=== PATIENT | female | born 1985 | race Caucasian/White ===

== ENCOUNTER 2017-03-13 02:57 | Emergency (ER) | payer MEDICAID ==
[~2017-03-13] VITALS: Ht 157.5 cm; Wt 66.0 kg
[~2017-03-13 02:57] MED LIST: BACTDS PO; HYDR-3498 PO; IBUP-1542 PO
[2017-03-13 03:00] VITALS: Ht 157.5 cm; Wt 66.0 kg
[2017-03-13] MEDS ORDERED: morphine 4 MG/ML VIAL IV STA (03:04)
[2017-03-13] MEDS ORDERED: ONDANSETRON 4 MG INJ IV STA (03:04)
[2017-03-13] MEDS ORDERED: SOD CHLORIDE 0.9% 1,000 ML IV STA (03:04)
[2017-03-13 03:24] LABS: URINE BLOOD (Dip) POC Negative (NEGATIVE)
[2017-03-13 03:37] LABS: ADD SCAN DIFF NO
[2017-03-13 03:47] LABS: ADD UMIC YES; URINE BILIRUBIN (Dip) NEGATIVE (NEGATIVE); URINE BLOOD (Dip) NEGATIVE (NEGATIVE); URINE COLOR LT. YELLOW (YELLOW); URINE GLUCOSE (Dip) NEGATIVE (NEGATIVE); URINE KETONES (Dip) NEGATIVE (NEGATIVE); URINE LEUKOCYTE ESTERASE (Dip) TRACE (NEGATIVE); URINE NITRITE (Dip) NEGATIVE (NEGATIVE); URINE TOTAL PROTEIN (Dip) NEGATIVE (NEGATIVE); URINE UROBILINOGEN (Dip) 0.2 E.U./dL (0.1-1.0)
[2017-03-13 03:50] LABS: INR 0.88; PARTIAL THROMBOPLASTIN TIME 29.6 Sec (25.0-35.0); PROTIME 11.9 Sec (12.2-14.2); PT RATIO 0.9
--- NOTE | 2017-03-13 03:50 | RADRPT ---
PROCEDURE: Ultrasound of the abdomen. CLINICAL INDICATION: Right upper quadrant pain. TECHNIQUE: Sonographic images of the abdomen were performed. COMPARISON: No pertinent prior examinations were submitted for comparison. FINDINGS: Liver: The liver is normal in echogencity and size measuring approximately 14.1 cm. The hepatic vei ns and portal veins are patent with appropriate directional flow. No intrahepatic ductal dilatation is seen. Gallbladder: The gallbladder is not distended and has normal wall thickness. No pericholecystic flu id or gallstones are visualized. The common duct measures 4.5 mm. Pancreas: Obscured by bowel gas. Kidneys: The right kidney measures 11.1 cm. There is normal corticomedullary differentiation. Ther e is no evidence of renal calculus or hydronephrosis. IVC: The visualized portion of the inferior vena cava is unremarkable. Aorta: Normal in size. Free fluid: None. IMPRESSION: Unremarkable right upper quadrant ultrasound. RPTAT: HIKT .Jaylen Ruiz MD, MD Date Time Electronically viewed and signed by .Jaylen Ruiz MD, on 03/13/2017 03:49 .T/
[2017-03-13 03:55] LABS: ALBUMIN 4.1 g/dl (3.3-4.9); ALBUMIN/GLOBULIN RATIO 1.13; BASOPHIL # 0.1 10^3/ul (0.0-0.1); BASOPHILS % 1.3 % (0.0-2.0); CALCIUM 8.9 mg/dl (8.4-10.2); CREATININE 0.65 mg/dl (0.44-1.00); EOSINOPHILS # 0.5 10^3/ul (0.0-0.5); HEMATOCRIT 42.1 % (37.0-47.0); HEMOGLOBIN 13.3 g/dl (12.0-16.0); LYMPHOCYTES # 3.8 10^3/ul (0.8-2.9); LYMPHOCYTES % 50.3 % (15.0-51.0); MEAN CORPUSCULAR HEMOGLOBIN 28.8 pg (29.0-33.0); MEAN CORPUSCULAR HGB CONC 31.6 g/dl (32.0-37.0); MEAN CORPUSCULAR VOLUME 91.1 fl (82.0-101.0); MEAN PLATELET VOLUME 9.3 fl (7.4-10.4); MONOCYTE # 0.6 10^3/ul (0.3-0.9); MONOCYTES % 7.3 % (0.0-11.0); NEUTROPHIL # 2.6 10^3/ul (1.6-7.5); PLATELET COUNT 292 10^3/UL (140-415); POTASSIUM 3.4 mmol/L (3.5-5.1); RED BLOOD COUNT 4.62 10^6/ul (4.20-5.40); RED CELL DISTRIBUTION WIDTH 13.3 % (11.5-14.5); TOTAL PROTEIN 7.7 g/dl (6.1-8.1); WHITE BLOOD COUNT 7.5 10^3/ul (4.8-10.8)
[2017-03-13 03:58] LABS: BACTERIA,URINE MANY; SQUAMOUS EPITHELIAL CELL,UR MODERATE; URINE RBCS 0-2 /HPF (0)
--- NOTE | 2017-03-13 04:10 | ERD ---
ER Documentation Chief Complaint Date/Time DATE: 03/13/17 TIME: 04:09 Chief Complaint upper abd pain radaiting to back since 3 hours ago HPI This is a 31-year-old female comes in with upper abdominal pain rating to back since 3 years ago. Patient has history of gastritis. Pain is mild to moderate intensity, burning in sensation. No fevers no chills. Mild nausea. No vomiting. No other current complaints. ROS All systems reviewed and are negative except as per history of present illness. Medications Home Meds Active Scripts Hydrocodone Bit-Acetaminophen* ([place]*) 5-325 Mg Tab, 1 TAB PO Q6 Y for PAIN, # 7 TAB Prov:HEIDY SINCLAIR MD 05/19/16 Ibuprofen* (Motrin*) 600 Mg Tab, 600 MG PO Q6H Y for PAIN AND OR ELEVATED TEMP, #30 TAB Prov:HEIDY SINCLAIR MD 05/19/16 Sulfamethoxazole-Trimethoprim* (Bactrim* DS) 800-160 Mg Tab, 1 TAB PO BID, #20 TAB Prov:HEIDY SINCLAIR MD 05/19/16 Allergies Allergies: Coded Allergies: No Known Drug Allergies (Verified Allergy, Mild, 05/19/16) PMhx/Soc History of Surgery: No Anesthesia Reaction: No Hx Neurological Disorder: No Hx Respiratory Disorders: No Hx Cardiac Disorders: No Hx Psychiatric Problems: No Hx Miscellaneous Medical Probl: Yes (gall stones) Hx Alcohol Use: No Hx Substance Use: No Hx Tobacco Use: No Smoking Status: Never smoker Physical Exam Vitals Vital Signs Date Time Temp Pulse Resp B/P Pulse Ox O2 Delivery O2 Flow Rate FiO2 03/13/17 03:00 97.6 89 20 122/70 99 Physical Exam Const: [] Head: Atraumatic Eyes: Normal Conjunctiva ENT: Normal External Ears, Nose and Mouth. Neck: Full range of motion..~ No meningismus. Resp: Clear to auscultation bilaterally Cardio: Regular rate and rhythm, no murmurs Abd: Soft, non tender, non distended. Normal bowel sounds Skin: No petechiae or rashes Back: No midline or flank tenderness Ext: No cyanosis, or edema Neur: Awake and alert Psych: Normal Mood and Affect Result Diagram: 03/13/17 0325 Results 24 hrs Laboratory Tests Test 03/13/17 03:24 03/13/17 03:25 Bedside Urine pH (LAB) 5.5 Bedside Urine Protein (LAB) Negative Bedside Urine Glucose (UA) Negative Bedside Urine Ketones (LAB) Negative Bedside Urine Blood Negative Bedside Urine Nitrite (LAB) Negative Bedside Urine Leukocyte Esterase (L Trace Prothrombin Time 11.9Sec Prothrombin Time Ratio 0.9 INR International Normalized Ratio 0.88 Activated Partial Thromboplast Time 29.6Sec Urine Color LT. YELLOW Urine Clarity CLEAR Urine pH 5.5 Urine Specific [place] >=1.030 Urine Ketones NEGATIVE Urine Nitrite NEGATIVE Urine Bilirubin NEGATIVE Urine Urobilinogen 0.2 E.U./dL Urine Leukocyte Esterase TRACE Urine Microscopic RBC 0-2/HPF Urine Microscopic WBC 5-10/HPF Urine Squamous Epithelial Cells MODERATE Urine Bacteria MANY Urine Hemoglobin NEGATIVE Urine Glucose NEGATIVE% Urine Total Protein NEGATIVE Sodium Level 139mmol/L Potassium Level 3.4mmol/L Chloride Level 105mmol/L Carbon Dioxide Level 24mmol/L Anion Gap 13 Blood Urea Nitrogen 12mg/dl Creatinine 0.65mg/dl Glucose Level 107mg/dl Calcium Level 8.9mg/dl Total Bilirubin 0.0mg/dl Direct Bilirubin 0.00mg/dl Indirect Bilirubin 0.0mg/dl Aspartate Amino Transf (AST/SGOT) 24IU/L Alanine Aminotransferase (ALT/SGPT) 27IU/L Alkaline Phosphatase 89IU/L Total Protein 7.7g/dl Albumin 4.1g/dl Globulin 3.60g/dl Albumin/Globulin Ratio 1.13 Lipase 101U/L Current Medications Medications (Trade) Dose Ordered Sig/Ramirez Route PRN Reason Start Time Stop Time Status Last Admin Dose Admin Sodium Chloride (NS) 1,000 ml @ 1,000 mls/hr Q1H STAT IV 03/13/17 03:04 03/13/17 04:03 DC 03/13/17 03:24 Morphine Sulfate (morphine) 4 mg ONCE STAT IV 03/13/17 03:04 03/13/17 03:07 DC 03/13/17 03:23 Ondansetron HCl (Zofran Inj) 4 mg ONCE STAT IV 03/13/17 03:04 03/13/17 03:07 DC 03/13/17 03:23 Procedures/MDM Medical decision-makin-year-old female with acute epigastric abdominal pain likely secondary gastritis. At this point patient feels much better. Patient will be discharged home with Zantac, Carafate. Follow-up in 8 hours for serial abdominal exams. Departure Diagnosis: Primary Impression: Abdominal pain Abdominal location: epigastric Qualified Code: R10.13 - Epigastric pain Condition: Stable PRESTON LAL Mar 13, 2017 04:10
[2017-03-13] MEDS ORDERED: ONDA4TAB14 PO (04:20)
[2017-03-13] MEDS ORDERED: RANI150T9 PO (04:20)
[2017-03-13] MEDS ORDERED: SUCR1TAB56 PO (04:20)
[2017-03-13 04:29] VITALS: BP 109/70; PULSE 68; RESP 20; TEMP 98
[2017-03-13] MEDS ORDERED: LIDOCAINE/MYLANTA 40 ML BTL PO ONE (04:30)
== END 2017-03-13 04:29 | disposition home or self-care (01) ==
LOC: E/R 02:57
DX: R10.13 Epigastric pain (principal); R11.0 Nausea
CPT/HCPCS: 36415; 76705; 80053; 81001; 83690; 85025; 85610; 85730; 96374; 96375; J2270; J2405; J7030; Z7502; Z7610; 81003

== ENCOUNTER 2017-04-12 00:52 | Emergency (ER) | payer MEDICAID ==
[~2017-04-12] VITALS: Ht 152.4 cm; Wt 66.0 kg
[~2017-04-12 00:52] MED LIST changes: +ONDA4TAB14 PO; +RANI150T9 PO; +SUCR1TAB56 PO
[2017-04-12 00:57] VITALS: Ht 152.4 cm; Wt 66.0 kg
--- NOTE | 2017-04-12 02:27 | ERA ---
ER Documentation Chief Complaint Date/Time DATE: 04/12/17 TIME: 02:24 Chief Complaint Abdominal pain HPI The patient is a 32-year-old female, presenting to the ER because of recurrent abdominal pain that began about 8 PM yesterday.. The abdominal pain is localized at the epigastric area, associated with constipation she was seen in the ER last month for similar symptoms. She complains of constipation. She denies fever, chills, neck pain, chest pain, dysuria. He complains of chronic nasal congestion and sinus problems she does not smoke, drink Past medical history: Gastritis, asthma Past surgical history: None ROS All systems reviewed and are negative except as per history of present illness. Medications Home Meds Active Scripts Omeprazole* (Omeprazole*) 20 Mg Capsule.dr, 20 MG PO BID, #20 Prov:HEIDY SINCLAIR MD 04/12/17 Loratadine/Pseudoephedrine* (Claritin-D* 12 Hr) 5-120 Mg Tab.er.12h, 1 TAB PO Q12, #20 TAB.SA Prov:HEIDY SINCLAIR MD 04/12/17 Ondansetron (Ondansetron Odt) 4 Mg Tab.rapdis, 4 MG PO Q6H Y for NAUSEA AND/OR VOMITING, #10 TAB Prov:PRESTON LAL 03/13/17 Ranitidine Hcl* (Zantac*) 150 Mg Tablet, 150 MG PO BID Y for EPIGASTRIC PAIN, # 30 TAB Prov:PRESTON LAL 03/13/17 Sucralfate* (Carafate*) 1 Gm Tab, 1 GM PO QID, #60 TAB Prov:PRESTON LAL 03/13/17 Hydrocodone Bit-Acetaminophen* ([place]*) 5-325 Mg Tab, 1 TAB PO Q6 Y for PAIN, # 7 TAB Prov:HEIDY SINCLAIR MD 05/19/16 Ibuprofen* (Motrin*) 600 Mg Tab, 600 MG PO Q6H Y for PAIN AND OR ELEVATED TEMP, #30 TAB Prov:HEIDY SINCLAIR MD 05/19/16 Sulfamethoxazole-Trimethoprim* (Bactrim* DS) 800-160 Mg Tab, 1 TAB PO BID, #20 TAB Prov:HEIDY SINCLAIR MD 05/19/16 Allergies Allergies: Coded Allergies: No Known Drug Allergies (Verified Allergy, Mild, 05/19/16) PMhx/Soc Medical and Surgical Hx: pt denies Medical Hx, pt denies Surgical Hx History of Surgery: No Anesthesia Reaction: No Hx Neurological Disorder: No Hx Respiratory Disorders: No Hx Cardiac Disorders: No Hx Psychiatric Problems: No Hx Miscellaneous Medical Probl: Yes (gall stones) Hx Alcohol Use: No Hx Substance Use: No Hx Tobacco Use: No Smoking Status: Never smoker Physical Exam Vitals Vital Signs Date Time Temp Pulse Resp B/P Pulse Ox O2 Delivery O2 Flow Rate FiO2 04/12/17 04:40 97.5 63 18 99/55 99 Room Air 04/12/17 00:57 97.6 85 18 114/79 100 Physical Exam Const: No acute distress. Head: Atraumatic. Eyes: Normal Conjunctiva. ENT: Normal External Ears, Nose and Mouth. Neck: Full range of motion. No meningismus. Resp: Clear to auscultation bilaterally. Cardio: Regular rate and rhythm, no murmurs. Abd: Soft, non distended, normal bowel sounds, vague upper abdominal discomfort, no rigidity, rebound, CVA tenderness Skin: No petechiae or rashes. Back: No midline or flank tenderness. Ext: No cyanosis, or edema. Neur: Awake and alert. No focal deficit Psych: Normal Mood and Affect. Result Diagram: 04/12/17 0306 04/12/17 0306 Results 24 hrs Laboratory Tests Test 04/12/17 03:06 04/12/17 03:12 White Blood Count 5.710^3/ul Red Blood Count 4.3710^6/ul Hemoglobin 12.6g/dl Hematocrit 39.3% Mean Corpuscular Volume 89.9fl Mean Corpuscular Hemoglobin 28.8pg Mean Corpuscular Hemoglobin Concent 32.1g/dl Red Cell Distribution Width 13.3% Platelet Count 71784^3/UL Mean Platelet Volume 9.2fl Neutrophils % 38.1% Lymphocytes % 46.4% Monocytes % 7.4% Eosinophils % 6.3% Basophils % 1.4% Nucleated Red Blood Cells % 0.0/100WBC Neutrophils # 2.210^3/ul Lymphocytes # 2.710^3/ul Monocytes # 0.410^3/ul Eosinophils # 0.410^3/ul Basophils # 0.110^3/ul Nucleated Red Blood Cells # 0.010^3/ul Sodium Level 138mmol/L Potassium Level 3.9mmol/L Chloride Level 107mmol/L Carbon Dioxide Level 25mmol/L Anion Gap 10 Blood Urea Nitrogen 17mg/dl Creatinine 0.61mg/dl Glucose Level 88mg/dl Calcium Level 8.9mg/dl Total Bilirubin 0.3mg/dl Direct Bilirubin 0.00mg/dl Indirect Bilirubin 0.3mg/dl Aspartate Amino Transf (AST/SGOT) 20IU/L Alanine Aminotransferase (ALT/SGPT) 27IU/L Alkaline Phosphatase 71IU/L Total Protein 7.5g/dl Albumin 4.0g/dl Globulin 3.50g/dl Albumin/Globulin Ratio 1.14 Lipase 75U/L Bedside Urine pH (LAB) 5.5 Bedside Urine Protein (LAB) Negative Bedside Urine Glucose (UA) Negative Bedside Urine Ketones (LAB) Negative Bedside Urine Blood Negative Bedside Urine Nitrite (LAB) Negative Bedside Urine Leukocyte Esterase (L Trace Current Medications Medications (Trade) Dose Ordered Sig/Ramirez Route PRN Reason Start Time Stop Time Status Last Admin Dose Admin Sodium Chloride (NS) 1,000 ml @ 1,000 mls/hr Q1H STAT IV 04/12/17 02:37 04/12/17 03:36 DC 04/12/17 03:19 Morphine Sulfate (morphine) 4 mg ONCE STAT IV 04/12/17 02:37 04/12/17 02:39 DC 04/12/17 03:19 Ondansetron HCl (Zofran Inj) 4 mg ONCE STAT IV 04/12/17 02:37 04/12/17 02:39 DC 04/12/17 03:19 Pantoprazole (Protonix Iv) 40 mg ONCE ONCE IV 04/12/17 03:00 04/12/17 03:01 DC 04/12/17 03:19 Procedures/MDM MEDICAL MAKING DECISION: The patient is a 32-year-old female, presenting with recurrent epigastric abdominal pain of unclear etiology. She was treated with 1 L normal saline for clinical dehydration, morphine 4 mg IV for pain, Zofran 4 mg IV for nausea and Protonix 40 mg IV for epigastric abdominal pain with good response. The differential diagnoses considered include but are not limited to cholelithiasis, cholecystitis, cystitis, pancreatitis, hepatitis, gastritis, peptic ulcer disease, gastric ulcer, appendicitis, diverticulitis, cholangitis, choledocholithiasis, partial small bowel obstruction. Departure Diagnosis: Primary Impression: Abdominal pain Additional Impressions: Allergic rhinitis Constipation Condition: Good Comments She was discharged with Clarjosé miguel-Christian Lincolnsejuan antonio I discussed the findings with the patient. I advised the patient to follow-up with the primary physician in about 1-2 days, sooner if needed and return if any concern. HEIDY SINCLAIR MD April 12, 2017 02:27
[2017-04-12] MEDS ORDERED: SOD CHLORIDE 0.9% 1,000 ML IV STA (02:37)
[2017-04-12] MEDS ORDERED: morphine 4 MG/ML VIAL IV STA (02:37)
[2017-04-12] MEDS ORDERED: ONDANSETRON 4 MG INJ IV STA (02:37)
[2017-04-12] MEDS ORDERED: PANTOPRAZOLE 40 MG INJ IV ONE (03:00)
[2017-04-12 03:11] LABS: URINE BLOOD (Dip) POC Negative (NEGATIVE)
[2017-04-12 03:24] LABS: ADD SCAN DIFF NO
[2017-04-12 03:26] LABS: BASOPHIL # 0.1 10^3/ul (0.0-0.1); BASOPHILS % 1.4 % (0.0-2.0); EOSINOPHILS # 0.4 10^3/ul (0.0-0.5); EOSINOPHILS % 6.3 % (0.0-7.0); HEMATOCRIT 39.3 % (37.0-47.0); HEMOGLOBIN 12.6 g/dl (12.0-16.0); LYMPHOCYTES # 2.7 10^3/ul (0.8-2.9); LYMPHOCYTES % 46.4 % (15.0-51.0); MEAN CORPUSCULAR HEMOGLOBIN 28.8 pg (29.0-33.0); MEAN CORPUSCULAR HGB CONC 32.1 g/dl (32.0-37.0); MEAN CORPUSCULAR VOLUME 89.9 fl (82.0-101.0); MEAN PLATELET VOLUME 9.2 fl (7.4-10.4); MONOCYTE # 0.4 10^3/ul (0.3-0.9); MONOCYTES % 7.4 % (0.0-11.0); NEUTROPHIL # 2.2 10^3/ul (1.6-7.5); NEUTROPHILS % 38.1 % (39.0-77.0); PLATELET COUNT 278 10^3/UL (140-415); RED BLOOD COUNT 4.37 10^6/ul (4.20-5.40); RED CELL DISTRIBUTION WIDTH 13.3 % (11.5-14.5); WHITE BLOOD COUNT 5.7 10^3/ul (4.8-10.8)
[2017-04-12 03:44] LABS: ALBUMIN/GLOBULIN RATIO 1.14; BILIRUBIN,INDIRECT 0.3 mg/dl (0-1.1); BILIRUBIN,TOTAL 0.3 mg/dl (0.2-1.3); CALCIUM 8.9 mg/dl (8.4-10.2); CREATININE 0.61 mg/dl (0.44-1.00); POTASSIUM 3.9 mmol/L (3.5-5.1); TOTAL PROTEIN 7.5 g/dl (6.1-8.1)
[2017-04-12 04:40] VITALS: BP 99/55; PULSE 63; RESP 18; TEMP 97.5
[2017-04-12] MEDS ORDERED: LORA1TAB54 PO (05:14)
[2017-04-12] MEDS ORDERED: OMEP20CA16 PO (05:14)
== END 2017-04-12 05:23 | disposition home or self-care (01) ==
LOC: E/R 00:52
DX: R10.10 Upper abdominal pain, unspecified (principal); R40.2252 Coma scale, best verbal response, oriented, at arrival to emergency department; J30.9 Allergic rhinitis, unspecified; K59.00 Constipation, unspecified; J45.909 Unspecified asthma, uncomplicated; R40.2142 Coma scale, eyes open, spontaneous, at arrival to emergency department; R40.2362 Coma scale, best motor response, obeys commands, at arrival to emergency department
CPT/HCPCS: 80053; 81003; 83690; 85025; C9113; J2270; J2405; J7030; 36415; 96361; 96374; 96375

== ENCOUNTER 2017-05-06 21:25 | Emergency (ER) | payer SELFPAY ==
[~2017-05-06] VITALS: Ht 157.5 cm; Wt 68.0 kg
[~2017-05-06 21:25] MED LIST changes: +LORA1TAB54 PO; +OMEP20CA16 PO
[2017-05-06 21:27] VITALS: Ht 157.5 cm; Wt 68.0 kg
== END 2017-05-07 00:58 | disposition left against medical advice (07) ==
LOC: E/R 21:25
DX: Z53.21 Procedure and treatment not carried out due to patient leaving prior to being seen by health care provider (principal)

== ENCOUNTER 2017-05-17 05:01 | Emergency (ER) | payer SELFPAY ==
[~2017-05-17] VITALS: Wt 67.0 kg
== END 2017-05-17 06:54 | disposition left against medical advice (07) ==
LOC: E/R 05:01
DX: Z53.21 Procedure and treatment not carried out due to patient leaving prior to being seen by health care provider (principal)